=== PATIENT | female | born 1970 | race Caucasian/White ===

== ENCOUNTER 2021-05-20 10:51 | Outpatient (CLI) | payer OTHER | END 2021-05-20 10:52 | disposition home or self-care (01) | LOC: CSHMRI 10:51 | PROVIDERS: ATTEND Psychiatry & Neurology Neurology | DX: R26.89 Other abnormalities of gait and mobility (principal); M47.816 Spondylosis without myelopathy or radiculopathy, lumbar region; M46.96 Unspecified inflammatory spondylopathy, lumbar region | CPT/HCPCS: 72158 ==

== ENCOUNTER 2023-03-16 15:23 | Outpatient (CLI) | payer OTHER | END 2023-03-16 15:24 | disposition home or self-care (01) | LOC: CSHMRI 15:23 | PROVIDERS: ATTEND Surgery | DX: M71.38 Other bursal cyst, other site (principal); M47.816 Spondylosis without myelopathy or radiculopathy, lumbar region | CPT/HCPCS: 72148 ==